=== PATIENT | female | born 1970 | race Caucasian/White ===

== ENCOUNTER 2021-04-08 22:28 | Observation (INO) ==
[2021-04-09] MEDS ORDERED: ONDANSETRON 4 MG/2 ML VIAL IV STA (01:18)
[2021-04-09] MEDS ORDERED: ASPIRIN 325 MG TABLET PO STA (01:18)
[2021-04-09 01:45] LABS: Basophils # 0.1 10*3/uL (0.0-0.2); Basophils % 0.5 % (0.0-0.8); Eosinophils # 0.1 10*3/uL (0.0-0.87); Eosinophils % 0.9 % (0.00-10.9); Hematocrit 49.1 VOL% (35.7-47.0); Hemoglobin 16.6 GM/DL (12.0-16.0); Immature Granulocytes % 0.4 %; Immature Granulocytes Absolute 0.05 #; Lymphocytes # 3.7 10*3/uL (1.4-4.0); Mean Corpuscular HGB Conc 33.8 GM/DL (32-36); Mean Corpuscular Volume 89.4 FL (87-102); Mean Platelet Volume 11.3 FL (9.6-12.0); Monocytes % 8.6 % (1.7-12.7); Neutrophils % 60.6 % (38.7-73.9); Platelet Count 349 T/CUMM (130-400); Red Blood Count 5.49 MC/CUMM (3.8-5.5); Red Cell Distribution Width 14.5 % (9.3-17.3); White Blood Count 12.7 T/CUMM (4-12)
[2021-04-09 01:49] LABS: Alanine Aminotransferase 24 U/L (13-56); Albumin 4.3 G/DL (3.4-5.0); Alkaline Phosphatase 106 U/L (45-117); Aspartate Amino Transferase 10 U/L (0-37); Blood Urea Nitrogen 15 MG/DL (7-18); Calcium 9.9 MG/DL (8.5-10.1); Carbon Dioxide 30 MMOL/L (21-32); Estimated Glom Filtration Rate 87 ML/MIN; Glucose 139 MG/DL (74-106); Potassium 3.4 MMOL/L (3.5-5.1); Sodium 136 MMOL/L (136-145); Total Protein 7.4 G/DL (6.4-8.2)
[2021-04-09 02:04] LABS: PT Patient Result 11.2 SECS (10.5-12.0); Partial Thromboplastin Time 31.8 SECS (23.8-32.1)
[2021-04-09 02:08] LABS: Bacteria,Urine Occasional /HPF (Few); Bilirubin,Urine Negative (Negative); Blood, Urine Negative (Negative); Glucose,Urine (UA) Negative (Negative); Hyaline Casts,Urine 36 /LPF (0-3); Ketones,Urine 5 mg/dL (Negative); Mucus,Urine Many /LPF (Occasional); Nitrite,Urine Negative (Negative); Protein,Urine >=500 MG/DL; RBC,Urine 6 /HPF (0-4); Squamous Epithelial Cell,Urine Occasional /HPF (0-10); Urine Appearance CLOUDY (Clear); Urine Color Amber (Yellow); Urine Specific Gravity 1.023 (1.001-1.035)
[2021-04-09 02:18] LABS: Barbiturates Screen,Urine Negative (Negative); Benzodiazepines Screen,Urine Negative (Negative); Cannabinoid Screen,Urine Negative (Negative); Opiate Screen,Urine Negative (Negative); Phencyclidine Screen,Urine Negative (Negative)
[2021-04-09 02:19] LABS: Platelet Estimate Increased
[2021-04-09] MEDS ORDERED: NICOTINE 21 MG/24 HR PATCH TRANSDERM PRN (03:33)
[2021-04-09] MEDS ORDERED: ACETAMINOPHEN 325 MG TABLET PO PRN (03:33)
[2021-04-09] MEDS ORDERED: ONDANSETRON 4 MG/2 ML VIAL IV PRN (03:33)
[2021-04-09] MEDS ORDERED: GLUCAGON 1 MG VIAL IM PRN (03:33)
[2021-04-09] MEDS ORDERED: hydrALAZINE 20 MG/1 ML VIAL IV PRN (03:33)
[2021-04-09] MEDS ORDERED: DEXTROSE 10% 250 ML BAG IV PRN (03:33)
[2021-04-09] MEDS ORDERED: MAGNESIUM SULF RIDER 2 GM/50 ML PREMIX IV PRN (03:42)
[2021-04-09] MEDS ORDERED: POTASSIUM CHLORIDE RIDER 10 MEQ/100 ML PREMIX IV PRN (03:42)
[2021-04-09] MEDS ORDERED: POTASSIUM CHLORIDE 20 MEQ TABLET PO PRN (03:42)
[2021-04-09] MEDS ORDERED: MAGNESIUM SULF RIDER 4 GM/100 ML PREMIX IV PRN (03:42)
[2021-04-09] MEDS ORDERED: ENOXAPARIN 40 MG/0.4 ML SYRINGE SUBCUT SCH (04:00)
[2021-04-09 05:18] LABS: Calcium 8.8 MG/DL (8.5-10.1); Osmolality,Calculated 279.4 MOS/KG (273-304); Potassium 3.7 MMOL/L (3.5-5.1)
[2021-04-09 05:51] LABS: Risk Ratio 4.66; Thyroid Stimulating Hormone 1.1 uIU/ml (0.358-3.74); VLDL Cholesterol 32.4 MG/DL
[2021-04-09] MEDS ORDERED: NITROFURANTOIN MACRO/MONO 100 MG CAPSULE PO SCH (09:00)
[2021-04-09] MEDS ORDERED: PANTOPRAZOLE 40 MG TABLET PO SCH (09:00)
[2021-04-09 16:50] VITALS: BP 133/72
[2021-04-09] MEDS ORDERED: ATORVASTATIN 40 MG TABLET PO SCH (21:00)
== END 2021-04-09 18:00 | disposition left against medical advice (07) ==
LOC: N.EDINP 22:28 → N.ED 22:28 → N.EDINP 04-09 04:50 → N.TELES 04-09 05:10
PROVIDERS: ADMIT Internal Medicine; ATTEND Internal Medicine